=== PATIENT | male | born 1985 | race Caucasian/White ===

== ENCOUNTER 2018-10-12 18:03 | Emergency (ER) | payer SELFPAY, OTHER ==
[2018-10-12 19:37] LABS: URINE PH (Dip) POC 5.5 (5.0-8.5)
[2018-10-12 19:37] LABS: URINE BLOOD (Dip) POC Negative (NEGATIVE); URINE GLUCOSE (Dip) POC Negative (NEGATIVE); URINE KETONES (Dip) POC 1+ (NEGATIVE); URINE LEUKOCYTE EST (Dip) POC Negative (NEGATIVE); URINE NITRITE (Dip) POC Negative (NEGATIVE); URINE TOTAL PROTEIN POC Negative (NEGATIVE)
[2018-10-12] MEDS: IBUPROFEN 800 MG TAB PO (19:44)
== END 2018-10-12 21:15 | disposition home or self-care (01) ==
LOC: E/R 18:03
DX: M25.511 Pain in right shoulder (principal); R07.9 Chest pain, unspecified; M54.2 Cervicalgia; M54.5 Low back pain
CPT/HCPCS: 71045; 73030-RT; 81003; 99284-25